=== PATIENT | male | born 1970 | race Hispanic/Latino ===

== ENCOUNTER 2019-11-29 01:33 | Observation (INO) | payer SELFPAY ==
[2019-11-29] MEDS ORDERED: Nitroglycerin 0.4 MG TAB (25 Tab Bottle) PO PRN (03:00)
[2019-11-29] MEDS ORDERED: Dextrose 50% Abboject 50 ML SYRINGE SLOW IVP PRN (03:15)
[2019-11-29] MEDS ORDERED: Aspirin 325 MG TAB PO SCH (03:15)
[2019-11-29] MEDS ORDERED: Insulin Regular 300 UNITS/3 ML VIAL SC PRN (03:15)
[2019-11-29] MEDS ORDERED: Dextrose 5% in Water 1,000 ML IV PRN (03:15)
[2019-11-29 03:26] LABS: Troponin I Less than 0.010 ng/mL (< 0.028)
[2019-11-29 04:13] VITALS: BMI 33.5
--- NOTE | 2019-11-29 04:38 | HP ---
CHIEF COMPLAINT: Chest pain. HISTORY OF PRESENT ILLNESS: Mr. Pyle is a 49-year-old male with past medical history of hypertension; diabetes mellitus, type 2, diet controlled, presents to [facility] with chest pain and shortness of breath. Chest pain is in the lower chest and upper abdomen. Described as pressure in nature. It has been going on and off. His symptoms exacerbated by exertion and emotional stress. The patient has a family history of coronary artery disease. The patient is transferred to our medical facility for further management. Denies fever or chills. PAST MEDICAL HISTORY: 1. Hypertension. 2. Diabetes mellitus, type 2. PAST SURGICAL HISTORY: Hernia repair, abscess removed from the neck. FAMILY HISTORY: Coronary artery disease. SOCIAL HISTORY: He is a former smoker. Drinks alcohol socially. HOME MEDICATIONS: Please see home medication reconciliation form for updated medications. ALLERGIES: PENICILLIN. REVIEW OF SYSTEMS: Review of 14 systems negative except what is mentioned in history of present illness. PHYSICAL EXAMINATION: GENERAL: The patient is awake, alert, not in acute distress. VITAL SIGNS: Blood pressure 125/78, pulse is 78, respiratory rate is 18, temperature 98.6, oxygen saturation is 98% on room air. HEAD AND NECK: Normocephalic and atraumatic. NECK: Supple. No JVD. CHEST: Fair bilateral air entry. HEART: S1 and S2. Regular. ABDOMEN: Soft, nontender. Bowel sounds present. NEUROLOGIC: Awake, alert, oriented x3. PSYCH: Normal mood. EXTREMITIES: No clubbing, no cyanosis. GENITOURINARY: No suprapubic tenderness. No flank tenderness. LABORATORY DATA: Potassium is 3.3, glucose 221, BUN is 12, creatinine 0.8. Troponin is less than 0.01. EKG showed sinus rhythm with no acute ST changes. Chest x-ray, no acute findings. ASSESSMENT: 1. Acute chest pain, rule out acute coronary syndrome. 2. Hypertension. 3. Diabetes mellitus, type 2 with hyperglycemia. 4. Family history of coronary artery disease. PLAN: 1. Admit. 2. Telemonitor. 3. Aspirin. 4. Serial troponins. 5. Cardiac stress test in a.m. If positive, consult Cardiology. 6. Reconcile home medications. 7. DVT prophylaxis as appropriate. 8. Expected length of stay, 1 midnight if the patient is stable and further workup negative. Job ID: [id number]
[2019-11-29 06:13] LABS: Troponin I Less than 0.010 ng/mL (< 0.028)
[2019-11-29 08:43] VITALS: TEMP 98
[2019-11-29] MEDS ORDERED: Aspirin 325 mg Enteric Coated Tablet PO SCH (09:00)
[2019-11-29 11:25] VITALS: BP 128/67
--- NOTE | 2019-11-29 12:43 | NM ---
NUCLEAR MEDICINE CARDIAC MYOCARDIAL PERFUSION SPECT EJECTION FRACTION STUDY WALL MOTION CINE: DATE: 11/29/2019 HISTORY: 49 year old male with hypertension, diabetes, and family history of coronary artery disease, presents with acute chest pain TECHNIQUE: Number of days: 1 Rest study: Technetium 99m-sestamibi (Cardiolite) dose: 9.4 mCi Pharmacologic stress: Adenosine dose: 61 mg Stress study: Technetium 99m-sestamibi (Cardiolite) dose: 30.2 mCi FINDINGS: CARDIAC (MYOCARDIAL PERFUSION) SPECT There are no reversible myocardial perfusion defects. EJECTION FRACTION STUDY Left ventricular EF = 70 % WALL MOTION CINE Normal IMPRESSION: No evidence of reversible ischemia.
--- NOTE | 2019-11-29 17:08 | DIS ---
DATE OF ADMISSION: 11/29/2019 DATE OF DISCHARGE: 11/29/2019 HOSPITAL COURSE: Mr. Pyle is a 49-year-old male with medical history of type 2 diabetes and hypertension as well as medical history of coronary artery disease, who presents with epigastric pain. After negative cardiac workup including negative stress test, the patient was diagnosed with dyspepsia. H pylori stool antigen test was taken and to be followed by his primary care physician. PHYSICAL EXAMINATION: VITAL SIGNS: Blood pressure 128/67, temperature 98.0 Fahrenheit, pulse 73, respiratory rate 16, oxygen saturation 96% on room air. GENERAL APPEARANCE: No apparent distress. Obese. HEENT: Normocephalic, atraumatic, PERRL. CARDIAC: Regular rate and rhythm. No murmurs, gallops, or rubs. LUNGS: Clear to auscultation bilaterally. No wheezing, rales, or rhonchi. ABDOMEN: Mild epigastric tenderness with no guarding, normal bowel sounds. Nondistended. EXTREMITIES: No edema. PSYCHIATRIC: Proper mood and affect. Alert and oriented x3. PLAN: New medications: No new medications. Modified medications: No modified medications. Resumed medications: Aspirin 81 mg, lisinopril 20 mg. The patient was discharged home with followup appointments to his primary care physician with instructions to follow up on his H pylori test as well as consider GI referral. Job ID: [id number]
--- NOTE | 2019-12-09 12:11 | EKG ---
Test Reason : Blood Pressure : / mmHG Vent. Rate : 071 BPM Atrial Rate : 071 BPM P-R Int : 184 ms QRS Dur : 068 ms QT Int : 372 ms P-R-T Axes : 024 -03 006 degrees QTc Int : 404 ms Normal sinus rhythm Inferior infarct , age undetermined Abnormal ECG Confirmed by RADU CARTER DO ([id number]), newspaper photo editor BEKAH SAMPSON ([id number]) on 12/09/2019 12:11:07 PM Referred By: Confirmed By:RADU CARTER DO
== END 2019-11-29 15:40 | disposition home or self-care (01) ==
LOC: ERS 01:33 → 2NO 02:40
PROVIDERS: ADMIT Internal Medicine; ATTEND Internal Medicine
DX: R07.89 Other chest pain (principal); R06.02 Shortness of breath; I10 Essential (primary) hypertension; E11.9 Type 2 diabetes mellitus without complications; E66.9 Obesity, unspecified; Z68.33 Body mass index [BMI] 33.0-33.9, adult; Z79.82 Long term (current) use of aspirin; Z79.899 Other long term (current) drug therapy; Z87.891 Personal history of nicotine dependence; Z88.0 Allergy status to penicillin
CPT/HCPCS: 36415; 36416; 78452; 84484; 87338; 93005; 93017; A9500; G0378; J0153

== ENCOUNTER 2022-10-29 16:55 | Inpatient (IN) | payer SELFPAY ==
[2022-10-29 20:20] VITALS: BMI 34.6
[2022-10-29] MEDS ORDERED: Ondansetron PF 4 MG/2 ML Vial IVP PRN (21:03)
[2022-10-29] MEDS ORDERED: Morphine 4 MG/ML VIAL SLOW IVP PRN (21:14)
[2022-10-29] MEDS ORDERED: Dextrose 50% Abboject 50 ML SYRINGE SLOW IVP PRN (21:21)
[2022-10-29] MEDS ORDERED: Dextrose 5% in Water 1,000 ML IV PRN (21:21)
[2022-10-29] MEDS ORDERED: Sodium Chloride 0.9% 1,000 ML IV SCH (21:45)
[2022-10-29] MEDS: HumaLOG 300 UNITS/3 ML VIAL SC PRN (21:47)
[2022-10-29] MEDS: cefTRIAXone\\ROCEPHIN 2 GM in Sodium Chloride 0.9% 100 ML IVPB SCH (21:47)
[2022-10-29] MEDS ORDERED: Acetaminophen 325 MG TAB PO PRN (23:00)
[2022-10-29] MEDS: Clindamycin/D5W 600 MG in Premix Bag 1 BAG IVPB SCH (23:12)
[2022-10-29] MEDS ORDERED: fentaNYL 50 mcg/mL 1 mL Vial SLOW IVP SCH (23:59)
[2022-10-30] MEDS ORDERED: Morphine 4 MG/ML VIAL SLOW IVP PRN (02:59)
[2022-10-30] MEDS ORDERED: Ketorolac Tromethamine 30 MG/ML VIAL IVP SCH ×2 (03:30→09:15)
[2022-10-30 06:06] LABS: #Eosinphils 0.1 thou/uL (0.0-0.7); #Monocytes 1.4 thou/uL (0.11-0.59); #Neutrophils 8.9 thou/uL (1.40-6.50); %Basophils 0.2 % (0.0-1.0); %Eosinophils 0.7 % (0.0-10.0); %Lymphocytes 18.9 % (21.0-51.0); %Monocytes 10.7 % (0.0-10.0); %Neutrophils 69.2 % (42.0-75.0); Hemoglobin 13.5 g/dL (14.0-18.0); Mean Corpuscular Hemoglobin 30.1 pg (27.0-31.0); Mean Corpuscular Volume 91.3 fl (78.0-98.0); Mean Platelet Volume 9.3 fL (7.4-10.4); Platelet Count 213 10x3/uL (130-400); RBC Distribution Width 11.8 % (11.5-14.5); Red Blood Cell (RBC) Count 4.48 mill/uL (4.70-6.10); White Blood Cell (WBC) Count 12.9 10x3/uL (4.8-10.8)
[2022-10-30 06:16] LABS: Hemoglobin A1c 7.1 % (4.0-6.0)
[2022-10-30] MEDS: HumaLOG 300 UNITS/3 ML VIAL SC PRN ×3 (06:32→21:27)
[2022-10-30] MEDS: Clindamycin/D5W 600 MG in Premix Bag 1 BAG IVPB SCH ×3 (06:32→23:39)
[2022-10-30 06:38] LABS: Anion Gap 10 mmol/L (10-20); BUN (Urea Nitrogen) 10 mg/dL (8.9-20.6); Calc. Creatinine Clearance 176 mL/min (70-130); Calcium 8.7 mg/dL (7.8-10.44); Carbon Dioxide 22 mmol/L (22-29); Chloride 103 mmol/L (98-107); Estimated GFR 108; Glucose 210 mg/dL (70-105); Potassium 4.2 mmol/L (3.5-5.1); Sodium 131 mmol/L (136-145)
[2022-10-30] MEDS: Lisinopril 20 MG TAB PO SCH (08:56)
[2022-10-30] MEDS: Sodium Chloride 0.9% 1,000 ML IV SCH (09:54)
[2022-10-30] MEDS ORDERED: Lidocaine 1% (PF) 30 ML VIAL ONE (10:55)
[2022-10-30] MEDS ORDERED: Bacitracin Zinc Ointment 30 gm TUBE ONE (10:55)
[2022-10-30] MEDS ORDERED: EPINEPHrine 1 MG/ML AMP ONE (10:55)
[2022-10-30] MEDS ORDERED: fentaNYL PF 100 MCG/2 ML SYRINGE ONE (11:47)
[2022-10-30] MEDS ORDERED: Ketamine In 0.9 % NaCl 50 MG/5 ML SYRINGE ONE (11:47)
[2022-10-30] MEDS ORDERED: PROPOFOL 20 ML ONE (11:47)
[2022-10-30] MEDS ORDERED: Clindamycin/D5W 600 mg/50 ml Premix Bag ONE (11:52)
[2022-10-30] MEDS ORDERED: Midazolam HCl 2 mg/2 ml Vial ONE (12:06)
[2022-10-30] MEDS ORDERED: Glycopyrrolate 0.2 MG/ML 5 ML SYRINGE ONE (12:10)
[2022-10-30] MEDS ORDERED: Rocuronium Bromide 10 MG/ML (10ML VIAL) ONE (12:10)
[2022-10-30] MEDS ORDERED: Ondansetron PF 4 MG/2 ML Vial ONE (12:10)
[2022-10-30] MEDS ORDERED: Dexamethasone 20 MG/5 ML VIAL ONE (12:10)
[2022-10-30] MEDS ORDERED: NEOSTIGMINE 3 MG/3 ML SYR 3 MG/3 ML SYRINGE ONE (12:10)
[2022-10-30] MEDS ORDERED: Lidocaine 1% PF 5 ML VIAL ONE (12:10)
[2022-10-30] MEDS ORDERED: Succinylcholine Chloride 100 MG/5 ML SYRINGE FS ONE (12:10)
[2022-10-30] MEDS ORDERED: PROPOFOL 200 MG/20 ML VIAL ONE (12:10)
[2022-10-30] MEDS ORDERED: HumaLOG 300 UNITS/3 ML VIAL SC PRN (17:39)
[2022-10-30] MEDS: cefTRIAXone\\ROCEPHIN 2 GM in Sodium Chloride 0.9% 100 ML IVPB SCH (21:26)
[2022-10-31] MEDS: Sodium Chloride 0.9% 1,000 ML IV SCH (05:59)
[2022-10-31 06:11] LABS: #Monocytes 1.1 thou/uL (0.11-0.59); %Basophils 0.1 % (0.0-1.0); %Lymphocytes 9.8 % (21.0-51.0); %Monocytes 7.5 % (0.0-10.0); %Neutrophils 82.2 % (42.0-75.0); Hemoglobin 13.8 g/dL (14.0-18.0); Mean Corpuscular HGB CONC 33.7 g/dL (32.0-36.0); Mean Corpuscular Hemoglobin 30.1 pg (27.0-31.0); Mean Corpuscular Volume 89.3 fl (78.0-98.0); Mean Platelet Volume 9.1 fL (7.4-10.4); Platelet Count 235 10x3/uL (130-400); RBC Distribution Width 11.3 % (11.5-14.5); Red Blood Cell (RBC) Count 4.58 mill/uL (4.70-6.10); White Blood Cell (WBC) Count 14.6 10x3/uL (4.8-10.8)
[2022-10-31] MEDS: Clindamycin/D5W 600 MG in Premix Bag 1 BAG IVPB SCH ×2 (06:33→15:36)
[2022-10-31 06:34] LABS: Anion Gap 12 mmol/L (10-20); BUN (Urea Nitrogen) 13 mg/dL (8.9-20.6); Calc. Creatinine Clearance 168 mL/min (70-130); Calcium 9.3 mg/dL (7.8-10.44); Carbon Dioxide 23 mmol/L (22-29); Chloride 103 mmol/L (98-107); Estimated GFR 106; Glucose 272 mg/dL (70-105); Potassium 4.2 mmol/L (3.5-5.1); Sodium 134 mmol/L (136-145)
[2022-10-31] MEDS: Lisinopril 20 MG TAB PO SCH (08:06)
[2022-10-31] MEDS ORDERED: Insulin Glargine 30 UNITS/0.3 ML VIAL SC SCH (09:00)
[2022-10-31] MEDS: glyBURIDE 2.5 MG TAB PO SCH (23:10)
[2022-10-31] MEDS: metFORMIN 500 MG TAB PO SCH (23:11)
[2022-10-31] MEDS: cefTRIAXone\\ROCEPHIN 2 GM in Sodium Chloride 0.9% 100 ML IVPB SCH (23:11)
[2022-11-01 00:05] VITALS: TEMP 97.7
[2022-11-01] MEDS: Clindamycin/D5W 600 MG in Premix Bag 1 BAG IVPB SCH ×2 (00:14→06:20)
[2022-11-01 06:52] LABS: #Eosinphils 0.1 thou/uL (0.0-0.7); #Neutrophils 9.2 thou/uL (1.40-6.50); %Basophils 0.2 % (0.0-1.0); %Eosinophils 0.7 % (0.0-10.0); %Lymphocytes 25.3 % (21.0-51.0); %Monocytes 6.8 % (0.0-10.0); %Neutrophils 66.6 % (42.0-75.0); Hemoglobin 13.7 g/dL (14.0-18.0); Mean Corpuscular HGB CONC 33.1 g/dL (32.0-36.0); Mean Corpuscular Volume 90.8 fl (78.0-98.0); Mean Platelet Volume 9.5 fL (7.4-10.4); Platelet Count 254 10x3/uL (130-400); RBC Distribution Width 11.6 % (11.5-14.5); Red Blood Cell (RBC) Count 4.56 mill/uL (4.70-6.10); White Blood Cell (WBC) Count 13.9 10x3/uL (4.8-10.8)
[2022-11-01 07:45] LABS: Anion Gap 12 mmol/L (10-20); BUN (Urea Nitrogen) 16 mg/dL (8.9-20.6); Calc. Creatinine Clearance 166 mL/min (70-130); Calcium 9.1 mg/dL (7.8-10.44); Carbon Dioxide 26 mmol/L (22-29); Chloride 103 mmol/L (98-107); Estimated GFR 106; Glucose 194 mg/dL (70-105); Potassium 4.5 mmol/L (3.5-5.1); Sodium 136 mmol/L (136-145)
[2022-11-01] MEDS: glyBURIDE 2.5 MG TAB PO SCH (08:04)
[2022-11-01] MEDS: Lisinopril 20 MG TAB PO SCH (08:04)
[2022-11-01] MEDS: metFORMIN 500 MG TAB PO SCH (08:04)
[2022-11-01 08:07] VITALS: BP 126/84
[2022-11-01] MEDS ORDERED: Fish Oil 1,000 MG CAP PO SCH (09:00)
[2022-11-01] MEDS ORDERED: Multivit, Therapeutic 1 TAB PO SCH (09:00)
[2022-11-01] MEDS ORDERED: Aspirin Chewable 81 MG TAB PO SCH (09:00)
== END 2022-11-01 10:59 | disposition home or self-care (01) | DRG 144 ==
LOC: T4-A 16:55
PROVIDERS: ADMIT Internal Medicine; ATTEND Internal Medicine
PROC: 0K930ZZ Drainage of Left Neck Muscle, Open Approach (ICD-10-PCS; principal; 2022-10-30)
PROC: 0W960ZZ Drainage of Neck, Open Approach (ICD-10-PCS; 2022-10-30)
DX: J39.0 Retropharyngeal and parapharyngeal abscess (principal); E87.1 Hypo-osmolality and hyponatremia; L02.11 Cutaneous abscess of neck; I10 Essential (primary) hypertension; E11.65 Type 2 diabetes mellitus with hyperglycemia; E66.9 Obesity, unspecified; Z68.34 Body mass index [BMI] 34.0-34.9, adult; Z88.0 Allergy status to penicillin; Z79.82 Long term (current) use of aspirin; Z79.899 Other long term (current) drug therapy; Z79.84 Long term (current) use of oral hypoglycemic drugs; Z98.890 Other specified postprocedural states
CPT/HCPCS: 36415; 36416; 80048; 83036; 85025; 87040; 87070; 87205; J0171; J0696; J1100; J1815; J1885; J2001; J2250; J2270; J2405; J2704; J3010; J3490; J7050

== ENCOUNTER 2024-04-17 22:37 | Inpatient (IN) | payer SELFPAY ==
[2024-04-17] MEDS ORDERED: Ondansetron PF 4 MG/2 ML Vial IVP PRN (23:17)
[2024-04-17] MEDS ORDERED: Acetaminophen 650 MG Suppository PR PRN (23:17)
[2024-04-17] MEDS ORDERED: Ondansetron ODT 4 MG TAB PO PRN (23:17)
[2024-04-17 23:34] LABS: #Basophils 0.08 10x3/uL (0.0-0.2); %Basophils 0.5 % (0.0-1.0); %Eosinophils 1.5 % (0.0-10.0); %Lymphocytes 12.8 % (21.0-51.0); %Monocytes 11.6 % (0.0-10.0); %Neutrophils 72.4 % (42.0-75.0); Hematocrit 41.2 % (42.0-52.0); Hemoglobin 13.8 g/dL (14.0-18.0); Mean Corpuscular HGB CONC 33.5 g/dL (32.0-36.0); Mean Corpuscular Hemoglobin 30.6 pg (27.0-31.0); Mean Corpuscular Volume 91.4 fL (78.0-98.0); Mean Platelet Volume 8.9 fL (7.4-10.4); Platelet Count 251 10x3/uL (130-400); Red Blood Cell (RBC) Count 4.51 mill/uL (4.70-6.10)
[2024-04-17 23:40] VITALS: BMI 33.2
[2024-04-17] MEDS: Ciprofloxacin Lactate/D5W 400 MG in Premix 1 BAG IVPB SCH (23:43)
[2024-04-17] MEDS: Acetaminophen 325 MG TAB PO SCH (23:43)
[2024-04-17 23:47] LABS: Hemoglobin A1c 7.9 % (4.0-6.0)
[2024-04-18 00:01] LABS: Troponin I 0.034 ng/mL (< 0.028)
[2024-04-18 00:05] LABS: ALT (SGPT) 36 U/L (8-55); AST (SGOT) 32 U/L (5-34); Alkaline Phosphatase 92 U/L (40-110); Anion Gap 18 mmol/L (10-20); BUN (Urea Nitrogen) 7 mg/dL (8.4-25.7); Bilirubin, Total 1.1 mg/dL (0.2-1.2); Calc. Creatinine Clearance 180 mL/min (70-130); Calcium 8.7 mg/dL (7.8-10.44); Carbon Dioxide 15 mmol/L (22-29); Chloride 102 mmol/L (98-107); Estimated GFR 110; Glucose 126 mg/dL (70-105); Potassium 3.4 mmol/L (3.5-5.1); Sodium 132 mmol/L (136-145)
[2024-04-18] MEDS ORDERED: Electrolyte Replacement Protocol 1 EACH FS PRN (01:03)
[2024-04-18] MEDS ORDERED: Glucagon 1 MG/ML KIT IM PRN (01:13)
[2024-04-18] MEDS ORDERED: Insulin Regular, Human 100 UNIT/ML 10 ML VIAL SC PRN ×2 (01:13)
[2024-04-18] MEDS ORDERED: Dextrose 50% Abboject 50 ML SYRINGE SLOW IVP PRN (01:13)
[2024-04-18] MEDS ORDERED: Dextrose 5% in Water 1,000 ML IV PRN (01:13)
[2024-04-18] MEDS: Potassium Chloride 20 MEQ TAB PO SCH (03:42)
[2024-04-18] MEDS: Ketorolac Tromethamine 30 MG (1 mL) VIAL IVP SCH ×2 (03:43→22:58)
[2024-04-18 04:52] LABS: Cardiac Risk 5.8 (Less than 4.5)
[2024-04-18 04:57] LABS: Troponin I 0.041 ng/mL (< 0.028)
[2024-04-18] MEDS: Famotidine/PF 20 mg/2ml Vial SLOW IVP SCH (09:21)
[2024-04-18] MEDS: Aspirin Chewable 81 MG TAB PO SCH (09:23)
[2024-04-18] MEDS: Cholecalciferol (Vitamin D3) 400 UNITS TAB PO SCH (09:23)
[2024-04-18] MEDS: Fish Oil 1,000 MG CAP PO SCH (09:23)
[2024-04-18] MEDS: Lisinopril 20 MG TAB PO SCH (09:23)
[2024-04-18] MEDS: Multivit, Therapeutic 1 TAB PO SCH (09:23)
[2024-04-18] MEDS: Ascorbic Acid 500 mg Chewable Tablet PO SCH (09:23)
[2024-04-18] MEDS: Famotidine 20 MG TAB PO SCH (09:23)
[2024-04-18] MEDS: Magnesium Oxide 250 MG TAB PO SCH (09:23)
[2024-04-18] MEDS: Empagliflozin 25 MG TAB PO SCH (09:24)
[2024-04-18] MEDS: HYDROcodone/Acetaminophen 5/325 mg Tablet PO PRN (11:57)
[2024-04-18 13:26] LABS: Campy jejuni + coli by PCR Negative (Negative); STEC Shiga Toxin 1+2 Negative (Negative); Salmonella spp. by PCR Negative (Negative); Shigella spp + EIEC by PCR Negative (Negative)
[2024-04-18 14:13] VITALS: BMI 33.2
[2024-04-18] MEDS: Atorvastatin Calcium 20 MG TAB PO SCH (22:38)
[2024-04-18] MEDS: metroNIDAZOLE 500 MG in Premix 1 BAG IVPB SCH (22:38)
[2024-04-19 04:51] LABS: Hematocrit 39.9 % (42.0-52.0); Hemoglobin 13.7 g/dL (14.0-18.0); Mean Corpuscular HGB CONC 34.3 g/dL (32.0-36.0); Mean Corpuscular Hemoglobin 30.6 pg (27.0-31.0); Mean Corpuscular Volume 89.1 fL (78.0-98.0); Mean Platelet Volume 8.8 fL (7.4-10.4); Platelet Count 241 10x3/uL (130-400); RBC Distribution Width 11.9 % (11.5-14.5); Red Blood Cell (RBC) Count 4.48 mill/uL (4.70-6.10)
[2024-04-19 05:03] LABS: ALT (SGPT) 31 U/L (8-55); AST (SGOT) 29 U/L (5-34); Albumin 2.7 g/dL (3.5-5.0); Alkaline Phosphatase 92 U/L (40-110); Anion Gap 18 mmol/L (10-20); BUN (Urea Nitrogen) 10 mg/dL (8.4-25.7); Bilirubin, Total 0.9 mg/dL (0.2-1.2); Calc. Creatinine Clearance 171 mL/min (70-130); Calcium 8.9 mg/dL (7.8-10.44); Carbon Dioxide 23 mmol/L (22-29); Chloride 100 mmol/L (98-107); Estimated GFR 108; Glucose 122 mg/dL (70-105); Potassium 3.8 mmol/L (3.5-5.1); Protein, Total 6.7 g/dL (6.0-8.3); Sodium 137 mmol/L (136-145)
[2024-04-19 05:47] LABS: Band 9 % (5-11); Dohle Bodies SLIGHT; Eosinophils 3 % (0-10); Lymphocytes 16 % (21-51); Metamyelocyte 2 % (0-0); Monocytes 8 % (0-10); Neutrophil 62 % (42-75); Platelet Adequacy Comment Platelets Normal; Polychromasia SLIGHT = 2-3 cells HPF (0-2); Toxic Granulation SLIGHT
[2024-04-19] MEDS: GoLYTELY 4,000 ml Bottle PO SCH (17:35)
[2024-04-20 05:29] LABS: Hemoglobin 13.5 g/dL (14.0-18.0); Mean Corpuscular HGB CONC 33.8 g/dL (32.0-36.0); Mean Corpuscular Hemoglobin 30.2 pg (27.0-31.0); Mean Corpuscular Volume 89.5 fL (78.0-98.0); Mean Platelet Volume 8.7 fL (7.4-10.4); Platelet Count 253 10x3/uL (130-400); RBC Distribution Width 11.9 % (11.5-14.5); Red Blood Cell (RBC) Count 4.47 mill/uL (4.70-6.10)
[2024-04-20 06:32] LABS: Band 12 % (5-11); Eosinophils 3 % (0-10); Lymphocytes 8 % (21-51); Metamyelocyte 2 % (0-0); Monocytes 11 % (0-10); Myelocyte 3 % (0-0); Neutrophil 61 % (42-75); Platelet Adequacy Comment Platelets Normal; RBC Morphology Within Normal Limits; Toxic Granulation SLIGHT
[2024-04-20] MEDS: metroNIDAZOLE 500 MG (100 mL) BAG ONE (08:22)
[2024-04-20] MEDS ORDERED: PROPOFOL 40 ML ONE (11:12)
[2024-04-20] MEDS ORDERED: Midazolam HCl 2 mg/2 ml Vial ONE (11:28)
[2024-04-20] MEDS ORDERED: Lidocaine 1% PF 5 ML VIAL ONE (11:34)
[2024-04-20] MEDS ORDERED: Dexmedetomidine 200 MCG/2 ML VIAL ONE (11:42)
[2024-04-20] MEDS: metroNIDAZOLE 500 MG in Premix 1 BAG IVPB SCH (15:24)
[2024-04-21 11:13] VITALS: BP 136/82; TEMP 98.4
[2024-04-22 16:12] LABS: Adenovirus F 40-41 Not Detected (Not Detected); Astrovirus Not Detected (Not Detected); C. difficile toxin A+B Not Detected (Not Detected); Campylobacter by PCR Not Detected (Not Detected); Cryptosporidium Not Detected (Not Detected); Cyclospora cayetanensis Not Detected (Not Detected); Entamoeba histolytica Not Detected (Not Detected); Enteroaggregative E. coli Not Detected (Not Detected); Enteropathogenic E. coli Not Detected (Not Detected); Enterotoxigenic E. coli Not Detected (Not Detected); Giardia lamblia Not Detected (Not Detected); Norovirus GI-GII Not Detected (Not Detected); Plesiomonas shigelloides Not Detected (Not Detected); Rotavirus A Not Detected (Not Detected); Salmonella Not Detected (Not Detected); Sapovirus Not Detected (Not Detected); Shiga-toxin-producing E coli Not Detected (Not Detected); Shigella/Enteroinvasive E coli Not Detected (Not Detected); Vibrio Not Detected (Not Detected); Vibrio cholerae Not Detected (Not Detected); Yersinia enterocolitica DETECTED (Not Detected)
[2024-04-24 17:14] LABS: QuantiFERON-TB Gold Plus Negative (Negative)
== END 2024-04-21 14:43 | disposition home or self-care (01) | DRG 392 ==
LOC: OBS 22:37 → OBSVTOIN 04-18 15:24
PROVIDERS: ADMIT Student in an Organized Health Care Education/Training Program; ATTEND Internal Medicine
DX: K52.9 Noninfective gastroenteritis and colitis, unspecified (principal); E11.9 Type 2 diabetes mellitus without complications; I10 Essential (primary) hypertension; R77.8 Other specified abnormalities of plasma proteins; E87.6 Hypokalemia; E88.09 Other disorders of plasma-protein metabolism, not elsewhere classified; Z98.890 Other specified postprocedural states; Z82.49 Family history of ischemic heart disease and other diseases of the circulatory system; Z88.0 Allergy status to penicillin
CPT/HCPCS: 36415; 36416; 80053; 80061; 83036; 84484; 85025; 86403; 86480; 87338; 87505; 87507; 88305; 96365; G0378; J0744; J1815; J1885; J2250; J2704